=== PATIENT | male | born 1955 | race African-American/Black ===

== ENCOUNTER 2020-10-28 17:35 | Observation (INO) ==
[2020-10-28 18:08] LABS: ABS Basophils 0.1 10^3/ul (0-0.2); ABS Eosinophils 0.2 10^3/ul (0-0.6); ABS Monocytes 0.8 10^3/ul (0-0.8); ABS Neutrophils 3.9 10^3/ul (1.5-7.7); Eosinophil % 2.9 %; Hematocrit 42 % (42-52); Hemoglobin 13.5 g/dL (14.0-18.0); Lymphocyte % 37.1 %; Mean Corpuscular HGB Conc 33 g/dL (31-36); Mean Corpuscular Hemoglobin 23 pg (27-31); Mean Corpuscular Volume 72 fL (80-94); Mean Platelet Volume 8.1 fL (7.4-10.4); Nucleated Red Blood Cells % 0.1; Platelet Count 326 10^3/uL (150-450); Red Blood Count 5.78 10^6 /uL (4.18-5.48); Red Cell Distribution Width 16 % (10-15)
[2020-10-28 18:26] LABS: Troponin I 0.01 ng/mL (<0.03)
[2020-10-28 20:01] LABS: Albumin 4.3 g/dL (3.2-5.2); Albumin/Globulin Ratio 1.3 (1-3); Calcium 10.3 mg/dL (8.6-10.3); EGFR African American 27.6 (>60); EGFR Non-African American 22.8 (>60); Globulin 3.2 g/dL (2-4); Potassium 4.9 mmol/L (3.5-5.0); Total Bilirubin 0.3 mg/dL (0.2-1.0); Total Protein 7.5 g/dL (6.4-8.9)
[2020-10-28] MEDS ORDERED: NS 0.9% 1000 ml BAG 1,000 ML IV ONE (20:13)
[2020-10-28 22:14] LABS: Urine Appearance Clear; Urine Bilirubin Negative (Negative); Urine Blood 1+ (Negative); Urine Color Straw; Urine Glucose Negative (Negative); Urine Ketones Negative (Negative); Urine Nitrite Negative (Negative); Urine Protein 2+(100 mg/dL) (Negative); Urine Specific Gravity 1.009 (1.002-1.030); Urine Urobilinogen Negative (Negative)
[2020-10-28 22:18] LABS: Urine Bacteria Absent (Absent); Urine Red Blood Cell Trace(0-2/hpf) (Absent); Urine Squamous Epithelial Cell Present (Absent); Urine White Blood Cell Trace(0-5/hpf) (Absent)
[2020-10-28] MEDS: Enoxaparin 40 MG/0.4 ML SYR SUBCUT SCH (23:23)
[2020-10-28] MEDS: Insulin GLARGINE 100 un/ml 10 ml VIAL SUBCUT SCH (23:23)
[2020-10-29 05:13] LABS: ABS Basophils 0.1 10^3/ul (0-0.2); ABS Eosinophils 0.3 10^3/ul (0-0.6); ABS Lymphocytes 2.9 10^3/ul (1.0-4.8); ABS Monocytes 0.8 10^3/ul (0-0.8); ABS Neutrophils 2.9 10^3/ul (1.5-7.7); Eosinophil % 4.9 %; Hematocrit 42 % (42-52); Hemoglobin 13.5 g/dL (14.0-18.0); Lymphocyte % 41.2 %; Mean Corpuscular HGB Conc 32 g/dL (31-36); Mean Corpuscular Hemoglobin 23 pg (27-31); Mean Corpuscular Volume 72 fL (80-94); Mean Platelet Volume 8.2 fL (7.4-10.4); Nucleated Red Blood Cells % 0.2; Platelet Count 322 10^3/uL (150-450); Red Cell Distribution Width 16 % (10-15); White Blood Count 7.1 10^3/uL (3.5-10.8)
[2020-10-29 05:17] LABS: EGFR African American 40.1 (>60); EGFR Non-African American 33.1 (>60); HDL Cholesterol 24.8 mg/dL; Potassium 4.3 mmol/L (3.5-5.0)
[2020-10-29 05:33] LABS: TSH Ultra Thyroid Stim Horm 2.99 mcIU/mL (0.34-5.60)
[2020-10-29] MEDS: Aspirin EC 81 mg TAB.EC (enteric coated) PO SCH (08:33)
[2020-10-29] MEDS ORDERED: Perflutren Lipid Microsphere 3 ML VIAL ONE (09:04)
[2020-10-29] MEDS ORDERED: NS 0.9% 1000 ml BAG 1,000 ML IV SCH (15:15)
[2020-10-29] MEDS: Enoxaparin 40 MG/0.4 ML SYR SUBCUT SCH (20:17)
[2020-10-29] MEDS: Insulin GLARGINE 100 un/ml 10 ml VIAL SUBCUT SCH (20:18)
[2020-10-30 05:12] LABS: Hematocrit 43 % (42-52); Hemoglobin 13.8 g/dL (14.0-18.0); Mean Corpuscular HGB Conc 32 g/dL (31-36); Mean Corpuscular Hemoglobin 23 pg (27-31); Mean Corpuscular Volume 73 fL (80-94); Mean Platelet Volume 8.1 fL (7.4-10.4); Platelet Count 335 10^3/uL (150-450); Red Blood Count 5.93 10^6 /uL (4.18-5.48); Red Cell Distribution Width 16 % (10-15); White Blood Count 6.9 10^3/uL (3.5-10.8)
[2020-10-30 05:22] LABS: EGFR African American 53.1 (>60); EGFR Non-African American 43.9 (>60); Magnesium 1.8 mg/dL (1.9-2.7); Phosphorus 3.7 mg/dL (2.5-5.0); Potassium 4.3 mmol/L (3.5-5.0)
[2020-10-30] MEDS: Aspirin EC 81 mg TAB.EC (enteric coated) PO SCH (09:18)
[2020-10-30 10:03] VITALS: BP 120/83
== END 2020-10-30 11:25 | disposition home or self-care (01) ==
LOC: MEDTELE 17:35 → ED 17:35 → MEDTELE 23:45
PROVIDERS: ADMIT Internal Medicine; ATTEND Hospitalist

== ENCOUNTER 2021-08-31 17:29 | Observation (INO) ==
[2021-08-31] MEDS ORDERED: Lactated Ringers 1000 ml BAG 1,000 ML IV ONE ×3 (18:39→20:46)
[2021-08-31 19:17] LABS: Urine Appearance Cloudy; Urine Bilirubin Negative (Negative); Urine Blood Negative (Negative); Urine Color Yellow; Urine Glucose Negative (Negative); Urine Ketones Negative (Negative); Urine Nitrite Negative (Negative); Urine Protein 3+(>=500 mg/dL) (Negative); Urine Specific Gravity 1.017 (1.002-1.030); Urine Urobilinogen Negative (Negative)
[2021-08-31 19:24] LABS: Urine Bacteria Absent (Absent); Urine Red Blood Cell Absent (Absent); Urine Squamous Epithelial Cell Present (Absent); Urine White Blood Cell Trace(0-5/hpf) (Absent)
[2021-08-31 19:25] LABS: High Sens Troponin Baseline 21 pg/mL (<20)
[2021-08-31 19:31] LABS: ABS Basophils 0.1 10^3/ul (0-0.2); ABS Eosinophils 0.2 10^3/ul (0-0.6); ABS Lymphocytes 2.6 10^3/ul (1.0-4.8); ABS Monocytes 0.9 10^3/ul (0-0.8); ABS Neutrophils 5.9 10^3/ul (1.5-7.7); ABS Nucleated RBC 0.1 10^3/ul; Eosinophil % 2.3 %; Hematocrit 43 % (42-52); Hemoglobin 13.2 g/dL (14.0-18.0); Mean Corpuscular HGB Conc 31 g/dL (31-36); Mean Corpuscular Hemoglobin 21 pg (27-31); Mean Corpuscular Volume 69 fL (80-94); Mean Platelet Volume 8.9 fL (7.4-10.4); Nucleated Red Blood Cells % 0.6; Platelet Count 393 10^3/uL (150-450); Red Blood Count 6.16 10^6 /uL (4.18-5.48); Red Cell Distribution Width 22 % (10-15); White Blood Count 9.8 10^3/uL (3.5-10.8)
[2021-08-31 19:53] LABS: ALT 26 U/L (7-52); Albumin/Globulin Ratio 0.7 (1-3); Alkaline Phosphatase 430 U/L (35-149); Blood Urea Nitrogen 22 mg/dL (6-24); CO2 Carbon Dioxide 25 mmol/L (22-32); Calcium 9.1 mg/dL (8.6-10.3); Chloride 103 mmol/L (101-111); Globulin 2.9 g/dL (2-4); Glucose 170 mg/dL (70-100); Lipase 92 U/L (11.0-82.0); Sodium 137 mmol/L (135-145); Total Protein 4.9 g/dL (6.4-8.9); eGFR CKD-EPI 23.7 (>60)
[2021-08-31 20:06] LABS: Anion Gap 9 mmol/L (2-11)
[2021-08-31 20:53] LABS: High Sensitivity Troponin 1 Hr 20 pg/mL (<20)
[2021-08-31 20:57] LABS: Potassium Redraw 3.6 mmol/L (3.5-5.0)
[2021-08-31 22:47] LABS: Calcium 8.9 mg/dL (8.6-10.3); Potassium 3.6 mmol/L (3.5-5.0); eGFR CKD-EPI 25.5 (>60)
[2021-09-01] MEDS ORDERED: NS 0.9% 1000 ml BAG 1,000 ML IV SCH (00:15)
[2021-09-01] MEDS: Heparin 5000 UNITS/ML 1 mL VIAL SUBCUT SCH ×3 (06:02→21:38)
[2021-09-01 06:35] LABS: INR 1.2 (0.86-1.15)
[2021-09-01 06:44] LABS: C Reactive Protein 4.79 mg/L (<8.01)
[2021-09-01 06:53] LABS: ABS Basophils 0.1 10^3/ul (0-0.2); ABS Eosinophils 0.2 10^3/ul (0-0.6); ABS Lymphocytes 2.7 10^3/ul (1.0-4.8); ABS Neutrophils 4.8 10^3/ul (1.5-7.7); ABS Nucleated RBC 0.1 10^3/ul; Eosinophil % 2.1 %; Hematocrit 40 % (42-52); Hemoglobin 12.6 g/dL (14.0-18.0); Lymphocyte % 30.5 %; Mean Corpuscular HGB Conc 31 g/dL (31-36); Mean Corpuscular Hemoglobin 22 pg (27-31); Mean Corpuscular Volume 69 fL (80-94); Nucleated Red Blood Cells % 0.6; Platelet Count 357 10^3/uL (150-450); Red Blood Count 5.82 10^6 /uL (4.18-5.48); Red Cell Distribution Width 22 % (10-15); White Blood Count 8.8 10^3/uL (3.5-10.8)
[2021-09-01 07:42] LABS: Albumin 1.8 g/dL (3.2-5.2); Albumin/Globulin Ratio 0.7 (1-3); Calcium 9.1 mg/dL (8.6-10.3); Globulin 2.6 g/dL (2-4); Potassium 3.5 mmol/L (3.5-5.0); Total Bilirubin 0.3 mg/dL (0.2-1.0); Total Protein 4.4 g/dL (6.4-8.9); eGFR CKD-EPI 25.7 (>60)
[2021-09-01 16:08] LABS: Osmolality Serum 296 mOsm/kg (275-295)
[2021-09-02 04:23] LABS: Urine Osmo 408 mOsm/kg (150-1150)
[2021-09-02 04:32] LABS: Urine Creatinine Concentration 62.66 mg/dL
[2021-09-02] MEDS: Heparin 5000 UNITS/ML 1 mL VIAL SUBCUT SCH ×2 (05:41→13:46)
[2021-09-02 06:02] LABS: ABS Monocytes 1.2 10^3/ul (0-0.8)
[2021-09-02 06:03] LABS: ABS Basophils 0.1 10^3/ul (0-0.2); ABS Eosinophils 0.2 10^3/ul (0-0.6); ABS Lymphocytes 2.4 10^3/ul (1.0-4.8); ABS Neutrophils 5.3 10^3/ul (1.5-7.7); ABS Nucleated RBC 0.1 10^3/ul; Eosinophil % 2.2 %; Hematocrit 40 % (42-52); Hemoglobin 12.4 g/dL (14.0-18.0); Lymphocyte % 26.4 %; Mean Corpuscular HGB Conc 32 g/dL (31-36); Mean Corpuscular Hemoglobin 22 pg (27-31); Mean Corpuscular Volume 69 fL (80-94); Mean Platelet Volume 9.1 fL (7.4-10.4); Nucleated Red Blood Cells % 0.6; Platelet Count 370 10^3/uL (150-450); Red Blood Count 5.72 10^6 /uL (4.18-5.48); Red Cell Distribution Width 22 % (10-15); White Blood Count 9.2 10^3/uL (3.5-10.8)
[2021-09-02 06:11] LABS: Potassium 3.7 mmol/L (3.5-5.0); eGFR CKD-EPI 28.3 (>60)
[2021-09-02 09:45] LABS: Osmolality Serum 294 mOsm/kg (275-295)
[2021-09-02 11:24] VITALS: BP 92/63
== END 2021-09-02 15:30 | disposition left against medical advice (07) ==
LOC: ED 17:29 → EDHOLD 17:29 → SUATTDRO 09-01 00:13 → MEDTELE 09-01 04:23
PROVIDERS: ADMIT Internal Medicine; ATTEND Internal Medicine